=== PATIENT | female | born 1955 | race Caucasian/White ===

== ENCOUNTER 2016-06-27 10:26 | Day surgery (SDC) | payer MEDICAID ==
[2016-06-27] MEDS ORDERED: MIDAZOLAM HCL 2MG/2ML VIAL IV ONE (14:00)
[2016-06-27] MEDS ORDERED: PROPOFOL 10 MG/ML VIAL IV ONE (14:00)
--- NOTE | 2016-06-29 13:02 | Operative Note ---
DATE OF SURGERY: 06/27/2016. REFERRING PHYSICIAN: Talisha Rendon C.N.P. PROCEDURE: Colonoscopy to the cecum with cold biopsy forceps polypectomy. INDICATION: Colorectal cancer screening. ANESTHESIA: Intravenous sedation was administered by the Department of Anesthesiology and included Diprivan titrated to effect. PROCEDURE: Following informed consent from this alert individual, including a discussion of the risks and benefits of the procedure and an opportunity for the patient to ask questions, the patient was in the left lateral decubitus position. A digital rectal exam was performed. No abnormalities were detected. Following this, the Olympus PCF-180 video colonoscope was inserted into the rectum without resistance. The rectal mucosa had a normal appearance with normal folds and distensibility. The colonoscope was advanced up through the colon to the level of the cecum without much difficulty. Throughout the bowel, the mucosa appeared normal, folds were normal, and the bowel was fairly distensible. A few scattered diverticula were noted. The cecum was defined by noting the appendiceal orifice and cecal pouch. From the base of the cecum, the colonoscope was then withdrawn back through the bowel re-examining the mucosa upon withdrawal. In the cecum itself, there was a diminutive 3.0 mm polyp noted on a fold. This was removed with cold biopsy forceps. No other polyps was noted upon withdrawal. Again, a few scattered diverticula were noted in the right and left colon upon withdrawal. The colon preparation overall was good. Retroflexion in the rectum was endoscopically unremarkable. The endoscope was then straightened and withdrawn. The patient tolerated the procedure well and was returned to the recovery area in stable condition. IMPRESSION: 1. A 3.0 mm cecal polyp removed with biopsy forceps. 2. Diverticulosis. RECOMMENDATIONS: The patient was advised she should receive a copy of her pathology report at home in the next two to three weeks. If not, she was asked to call my office to review the results of testing done today. Further recommendations will be forthcoming pending those results. Follow up will also be with Talisha Rendon, nurse practitioner. SHARLENE MCCLAIN D.O. Date Time JOB NUMBER: [id number] cc: Romy Juarez
== END 2016-06-27 12:33 | disposition home or self-care (01) ==
LOC: HOP 10:26
PROVIDERS: ATTEND Internal Medicine Gastroenterology
DX: Z12.11 Encounter for screening for malignant neoplasm of colon (principal); D12.0 Benign neoplasm of cecum; E03.9 Hypothyroidism, unspecified; J44.9 Chronic obstructive pulmonary disease, unspecified